=== PATIENT | female | born 1990 | race African-American/Black ===

== ENCOUNTER 2020-10-14 09:30 | Inpatient (IN) | payer OTHER ==
[2020-10-14] MEDS ORDERED: BUTORPHANOL TARTRATE 1 MG/ML VIAL IVPB ONE (10:24)
[2020-10-14] MEDS ORDERED: PROMETHAZINE HCL 25 MG/1 ML VIAL IVPB ONE (10:24)
[2020-10-14] MEDS ORDERED: OXYTOCIN 30 UNITS in 0.9% NS 30 UNIT/500 ML INFUS.BAG IVPB SCH (10:30)
[2020-10-14] MEDS ORDERED: DEXTROSE 5%-LACTATED RINGERS 1,000 ML IV SCH (10:30)
[2020-10-14 12:16] LABS: BASO % 0.6 % (0-2.0); EOS % 1.4 % (0-4.5); HEMATOCRIT 29.5 % (32.4-45.2); HEMOGLOBIN 9.8 GM/dL (10.7-15.3); LYMPH % 15.1 % (8-40); MCH 28.9 pg (25.7-33.7); MCHC 33.1 g/dl (32.0-36.0); MEAN CELL VOLUME 87.3 fl (80-96); MONO % 8.7 % (3.8-10.2); NEUT % 74.2 % (42.8-82.8); PLATELET COUNT 222 10^3/uL (134-434); RBC 3.38 M/mm3 (3.60-5.2); RDW 14.7 % (11.6-15.6); WHITE BLOOD COUNT 8.9 K/mm3 (4.0-10.0)
[2020-10-14 12:23] LABS: INR 0.87 (0.83-1.09); PROTHROMBIN TIME (PATIENT) 10.7 SEC (9.7-13.0)
[2020-10-14 12:26] LABS: ACTIVATED PTT 24.7 SECONDS (25.2-36.5)
[2020-10-14 12:36] LABS: CALCIUM 8.4 mg/dL (8.5-10.1)
[2020-10-14 12:37] LABS: BLOOD UREA NITROGEN 8.2 mg/dL (7-18)
[2020-10-14 12:40] LABS: CREATININE 0.6 mg/dL (0.55-1.3)
[2020-10-14] MEDS ORDERED: OXYTOCIN 30 UNITS in 0.9% NS 30 UNIT/500 ML INFUS.BAG IVPB ONE (13:02)
[2020-10-14 13:03] LABS: SYPHILIS W/ RPR CONF NON-REACTIVE (NONREACTIVE)
[2020-10-14 13:32] LABS: HIV INTERPRETATION NEGATIVE (NEGATIVE)
[2020-10-14 15:02] VITALS: BMI 29.2
[2020-10-14] MEDS ORDERED: FENTANYL/BUPIVACAINE/NS/PF - PCEA - 50 ML DISP.SYRIN EP ONE (16:40)
[2020-10-14] MEDS ORDERED: BUPIVACAINE HCL/PF 0.25% (2.5MG/ML) 10 ML VIAL ONE (16:57)
[2020-10-14] MEDS ORDERED: NALOXONE HCL 0.4 MG/ML VIAL IVPUSH PRN (17:21)
[2020-10-14] MEDS ORDERED: FENTANYL/BUPIVACAINE/NS/PF - PCEA - 50 ML DISP.SYRIN EP SCH (17:30)
[2020-10-14] MEDS ORDERED: PCA PUMP NR ONE (20:44)
[2020-10-14] MEDS ORDERED: LIDOCAINE HCL/EPINEPHRINE/PF 10 ML VIAL ONE ×3 (20:46→20:49)
[2020-10-14 20:58] LABS: COCAINE, UR NEGATIVE (NEGATIVE); OPIATES, URI NEGATIVE (NEGATIVE); PHENCYCLIDINE,URINE NEGATIVE (NEGATIVE); URINE BARBITURATES NEGATIVE (NEGATIVE); URINE BENZODIAZEPINES NEGATIVE (NEGATIVE)
[2020-10-14 20:59] LABS: METHADONE, UR NEGATIVE (NEGATIVE)
[2020-10-14] MEDS: OXYTOCIN 20 UNITS in 0.9% NS 20 UNIT/1,000 ML INFUS.BAG IV SCH (21:10)
[2020-10-14] MEDS ORDERED: MIDAZOLAM HCL 2 MG/2 ML SINGLE DOSE VIAL ONE ×2 (21:11→21:15)
[2020-10-14] MEDS ORDERED: OXYTOCIN 10 UNITS/ML VIAL ONE ×4 (21:19→21:20)
[2020-10-14] MEDS ORDERED: ceFAZolin SODIUM 1 GM VIAL ONE ×2 (21:20)
[2020-10-14 21:23] LABS: URINE AMPHETAMINES NEGATIVE (NEGATIVE)
[2020-10-14] MEDS ORDERED: IBUPROFEN 600 MG TABLET (FP) PO PRN (21:55)
[2020-10-14] MEDS ORDERED: ONDANSETRON 4 MG/2 ML VIAL IVPUSH PRN (21:55)
[2020-10-14] MEDS ORDERED: METHYLERGONOVINE MALEATE 0.2 MG/1 ML AMP IM PRN (22:04)
[2020-10-14] MEDS ORDERED: ACETAMINOPHEN 325 MG TABLET (FP) PO PRN (22:04)
[2020-10-14] MEDS ORDERED: ACETAMINOPHEN 325 MG TABLET (FP) ONE (23:23)
[2020-10-14] MEDS ORDERED: OXYTOCIN 20 UNITS in 0.9% NS 20 UNIT/1,000 ML INFUS.BAG IV ONE (23:23)
[2020-10-14] MEDS: ACETAMINOPHEN 325 MG TABLET (FP) PO PRN (23:26)
[2020-10-14] MEDS: IBUPROFEN 800 MG/8 ML IJ IVPB PRN (23:53)
[2020-10-15] MEDS: oxyCODONE HCL 5 MG TABLET PO PRN ×3 (01:46→22:41)
[2020-10-15] MEDS: ACETAMINOPHEN 325 MG TABLET (FP) PO PRN (08:21)
[2020-10-15] MEDS: SIMETHICONE 80 MG TAB.CHEW (FP) PO PRN ×2 (08:21→22:40)
[2020-10-15] MEDS: OXYTOCIN 20 UNITS in 0.9% NS 20 UNIT/1,000 ML INFUS.BAG IV SCH ×2 (08:28→16:12)
[2020-10-15 08:48] LABS: BASO % 0.5 % (0-2.0); EOS % 0.5 % (0-4.5); HEMATOCRIT 26.2 % (32.4-45.2); HEMOGLOBIN 8.3 GM/dL (10.7-15.3); LYMPH % 13.3 % (8-40); MCH 27.9 pg (25.7-33.7); MCHC 31.7 g/dl (32.0-36.0); MEAN CELL VOLUME 87.9 fl (80-96); MEAN PLT VOLUME 9.5 fl (7.5-11.1); MONO % 5.2 % (3.8-10.2); NEUT % 80.5 % (42.8-82.8); PLATELET COUNT 197 10^3/uL (134-434); RBC 2.99 M/mm3 (3.60-5.2); RDW 14.7 % (11.6-15.6); WHITE BLOOD COUNT 13.9 K/mm3 (4.0-10.0)
[2020-10-15] MEDS: IBUPROFEN 800 MG/8 ML IJ IVPB PRN (16:13)
[2020-10-15] MEDS ORDERED: BISACODYL 10 MG SUPP.RECT RC PRN (22:04)
[2020-10-15] MEDS: IBUPROFEN 600 MG TABLET (FP) PO PRN (22:41)
[2020-10-15] MEDS: SENNOSIDES/DOCUSATE COMBO (SENNA PLUS) TABLET (UD) PO PRN (22:42)
[2020-10-16] MEDS: SIMETHICONE 80 MG TAB.CHEW (FP) PO PRN ×3 (04:17→14:30)
[2020-10-16] MEDS: IBUPROFEN 600 MG TABLET (FP) PO PRN ×3 (04:18→22:49)
[2020-10-16] MEDS: oxyCODONE HCL 5 MG TABLET PO PRN ×4 (04:18→22:48)
[2020-10-16] MEDS: ACETAMINOPHEN 325 MG TABLET (FP) PO PRN ×4 (04:19→22:50)
[2020-10-16 22:26] VITALS: TEMP 98
[2020-10-16] MEDS: SENNOSIDES/DOCUSATE COMBO (SENNA PLUS) TABLET (UD) PO PRN (22:53)
[2020-10-17] MEDS: ACETAMINOPHEN 325 MG TABLET (FP) PO PRN (02:38)
[2020-10-17] MEDS: IBUPROFEN 600 MG TABLET (FP) PO PRN ×2 (02:38→07:45)
[2020-10-17] MEDS: oxyCODONE HCL 5 MG TABLET PO PRN ×2 (02:39→07:45)
[2020-10-17 09:33] VITALS: BP 124/80; PULSE 75
== END 2020-10-17 12:55 | disposition home or self-care (01) | DRG 560 ==
LOC: JLDR 09:30 → J3W 23:32
PROVIDERS: ADMIT Obstetrics & Gynecology; ATTEND Obstetrics & Gynecology
PROC: 10E0XZZ Delivery of Products of Conception, External Approach (ICD-10-PCS; principal; 2020-10-14)
PROC: 3E033VJ Introduction of Other Hormone into Peripheral Vein, Percutaneous Approach (ICD-10-PCS; 2020-10-14)
PROC: 10907ZC Drainage of Amniotic Fluid, Therapeutic from Products of Conception, Via Natural or Artificial Opening (ICD-10-PCS; 2020-10-14)
DX: O76 Abnormality in fetal heart rate and rhythm complicating labor and delivery (principal); O48.0 Post-term pregnancy; O62.9 Abnormality of forces of labor, unspecified; O69.9XX0 Labor and delivery complicated by cord complication, unspecified, not applicable or unspecified; Z3A.40 40 weeks gestation of pregnancy; Z37.0 Single live birth
CPT/HCPCS: 36415; 80048; 80307; 85025; 85610; 85730; 86780; 86850; 86900; 86901; 87389; 88307-TC; C9803; U0003; U0005